=== PATIENT | female | born 1980 | race African-American/Black ===

== ENCOUNTER 2016-10-19 23:45 | Emergency (ER) | payer OTHER ==
[~2016-10-19] VITALS: Ht 152.4 cm; Wt 126.0 kg
[~2016-10-19 23:45] MED LIST: AMOXICILLIN500 MG OR; AMOXICILLIN500 MG PO; AUGMENTIN500 MG OR; CEPHALEXIN500 MG PO; CIPRO500 MG OR; ERY-TAB333 MG OR; KEFLEX500 MG OR; LORTAB 5 OR; LORTAB5 OR; MOTRIN600 MG OR; NAPROSYN500 MG OR; NAPROSYN500 MG PO; NO CURRENT MEDS; NORCO1 TA1 PO
[2016-10-20 00:58] LABS: HEMATOCRIT 32.4 % (37.0-47.0); HEMOGLOBIN 10.5 g/dl (12.0-16.0); IMMATURE GRANULOCYTES 0.3 % (0.0-1.0); MEAN CELL VOLUME 85.7 fL CALC (80.0-100.0); MEAN CORPUSCULAR HGB 27.8 pG CALC (26.0-32.0); MEAN CORPUSCULAR HGB CONC 32.4 g/L CALC (32.0-36.0); NEUT# 4.34 thou/uL (2.00-7.15); RED BLOOD COUNT 3.78 mill/uL (4.20-5.60); RED CELL DISTRI WIDTH 14.4 % (11.5-15.5)
[2016-10-20 01:02] LABS: URINE BILIRUBIN - DIPSTICK NEGATIVE (NEGATIVE); URINE BLOOD DIPSTICK SMALL (NEGATIVE); URINE CLARITY CLEAR; URINE COLOR YELLOW; URINE GLUCOSE - DIPSTICK NEGATIVE (NEGATIVE); URINE KETONE NEGATIVE (NEGATIVE); URINE LEUK ESTERASE NEGATIVE (NEGATIVE); URINE NITRITE - DIPSTICK NEGATIVE (Negative); URINE PH 5.5 (4.5-8.0); URINE PROTEIN - DIPSTICK NEGATIVE (NEG-TRACE); URINE UROBILINOGEN - DIPSTICK 0.2 E.U./dL (0.2)
[2016-10-20 01:11] LABS: INFLUENZA A NONE DETECTED (NONE DETECT); INFLUENZA B NONE DETECTED (NONE DETECT)
[2016-10-20 01:17] LABS: ALBUMIN 3.9 g/dL (3.2-5.0); ALKALINE PHOSPHATASE 90 u/l (38-126); ANION GAP 15 (6-22 (CALC)); BILIRUBIN, TOTAL 0.2 mg/dL (0.0-1.4); BUN 6 mg/dL (7-17); BUN/CREATININE RATIO 9 (12-20 (CALC)); CALCIUM 8.8 mg/dL (8.4-10.2); CARBON DIOXIDE 24 mmol/l (22-30); CHLORIDE 107 mmol/l (95-108); CREATININE 0.7 mg/dL (0.5-1.0); GFR > 60 ML/MIN (>=60 (CALC)); GFR FOR AFR.AMER. > 60 ML/MIN (>=60 (CALC)); GLUCOSE 102 mg/dL (65-105); POTASSIUM 3.3 mmol/l (3.5-5.1); SGOT/AST 28 u/l (14-36); SGPT/ALT 34 u/l (9-52); SODIUM 143 mmol/l (137-146); TOTAL PROTEIN 7.5 g/dL (6.3-8.2)
[2016-10-20 01:18] LABS: URINE RBC 0-2 RBC/hpf (0-5); URINE SQUAMOUS EPITHELIAL CELL FEW EPI/hpf (0-FEW); URINE WBC 0-2 WBC/hpf (0-5)
[2016-10-20 02:00] VITALS: BP 142/70
[2016-10-20] MEDS ORDERED: AMOXICILLIN500 MG PO (02:25)
== END 2016-10-20 02:31 | disposition home or self-care (01) | DRG 153 ==
LOC: ED 23:45
PROVIDERS: Emergency Medicine
DX: J06.9 Acute upper respiratory infection, unspecified (principal)

== ENCOUNTER 2017-09-06 21:17 | Emergency (ER) | payer OTHER ==
[~2017-09-06] VITALS: Ht 167.6 cm; Wt 124.4 kg
[2017-09-06 21:58] LABS: URINE BILIRUBIN - DIPSTICK NEGATIVE (NEGATIVE); URINE BLOOD DIPSTICK TRACE-INTACT (NEGATIVE); URINE COLOR YELLOW; URINE GLUCOSE - DIPSTICK NEGATIVE (NEGATIVE); URINE KETONE NEGATIVE (NEGATIVE); URINE LEUK ESTERASE NEGATIVE (NEGATIVE); URINE NITRITE - DIPSTICK NEGATIVE (Negative); URINE PROTEIN - DIPSTICK NEGATIVE (NEG-TRACE); URINE SPECIFIC GRAVITY 1.015
[2017-09-06 22:00] LABS: URINE CLARITY CLEAR
[2017-09-06 22:14] LABS: INFLUENZA A NONE DETECTED (NONE DETECT); INFLUENZA B NONE DETECTED (NONE DETECT)
[2017-09-06 22:26] LABS: HEMOGLOBIN 10.6 g/dl (12.0-16.0); IMMATURE GRANULOCYTES 0.2 % (0.0-1.0); MEAN CELL VOLUME 85.6 fL CALC (80.0-100.0); MEAN CORPUSCULAR HGB 26.7 pG CALC (26.0-32.0); MEAN CORPUSCULAR HGB CONC 31.2 g/L CALC (32.0-36.0); NEUT# 2.71 thou/uL (2.00-7.15); RED BLOOD COUNT 3.97 mill/uL (4.20-5.60); RED CELL DISTRI WIDTH 14.6 % (11.5-15.5)
[2017-09-06 22:55] LABS: ALBUMIN 3.6 g/dL (3.2-5.0); ALKALINE PHOSPHATASE 112 u/l (38-126); ANION GAP 16 (6-22 (CALC)); BILIRUBIN, TOTAL 0.3 mg/dL (0.0-1.4); BUN 8 mg/dL (7-17); BUN/CREATININE RATIO 12 (12-20 (CALC)); CARBON DIOXIDE 25 mmol/l (22-30); CHLORIDE 104 mmol/l (95-108); CREATININE 0.7 mg/dL (0.5-1.0); GFR > 60 ML/MIN (>=60 (CALC)); GFR FOR AFR.AMER. > 60 ML/MIN (>=60 (CALC)); POTASSIUM 3.4 mmol/l (3.5-5.1); SGOT/AST 26 u/l (14-36); SGPT/ALT 35 u/l (9-52); SODIUM 142 mmol/l (137-146); TOTAL PROTEIN 7.3 g/dL (6.3-8.2)
[2017-09-06] MEDS ORDERED: ONDANSETRON4 MG PO (23:02)
[2017-09-06] MEDS ORDERED: ATIVAN0.5 MG PO (23:02)
[2017-09-06 23:15] VITALS: BP 155/95
== END 2017-09-06 23:15 | disposition home or self-care (01) | DRG 880 ==
LOC: ED 21:17
PROVIDERS: Emergency Medicine
DX: F43.0 Acute stress reaction (principal); F41.1 Generalized anxiety disorder

== ENCOUNTER 2018-05-18 19:15 | Emergency (ER) | payer OTHER ==
[~2018-05-18] VITALS: Ht 167.6 cm; Wt 122.7 kg
[~2018-05-18 19:15] MED LIST changes: +ATIVAN0.5 MG PO; +ONDANSETRON4 MG PO
[2018-05-18 21:21] LABS: HEMATOCRIT 35.6 % (37.0-47.0); HEMOGLOBIN 11.2 g/dl (12.0-16.0); IMMATURE GRANULOCYTES 0.1 % (0.0-5.0); MEAN CELL VOLUME 84.4 fL CALC (80.0-100.0); MEAN CORPUSCULAR HGB 26.5 pG CALC (26.0-32.0); MEAN CORPUSCULAR HGB CONC 31.5 g/L CALC (32.0-36.0); NEUT# 3.26 thou/uL (2.00-7.15); RED BLOOD COUNT 4.22 mill/uL (4.20-5.60); RED CELL DISTRI WIDTH 15.5 % (11.5-15.5)
[2018-05-18] MEDS ORDERED: FLEXERIL5 M1 PO (21:43)
[2018-05-18] MEDS ORDERED: TORADOL PO (21:43)
[2018-05-18 21:55] VITALS: BP 148/87
== END 2018-05-18 21:55 | disposition home or self-care (01) | DRG 552 ==
LOC: ED 19:15
PROVIDERS: Family Medicine
DX: S16.1XXA Strain of muscle, fascia and tendon at neck level, initial encounter (principal); S29.012A Strain of muscle and tendon of back wall of thorax, initial encounter; J06.9 Acute upper respiratory infection, unspecified; X50.0XXA Overexertion from strenuous movement or load, initial encounter; Y93.89 Activity, other specified; Y99.0 Civilian activity done for income or pay

== ENCOUNTER 2018-11-05 10:00 | Emergency (ER) | payer OTHER ==
[~2018-11-05] VITALS: Ht 167.6 cm; Wt 125.0 kg
[~2018-11-05 10:00] MED LIST changes: +FLEXERIL5 M1 PO; +TORADOL PO
[2018-11-05] MEDS ORDERED: ZESTRIL10 M1 PO (10:12)
[2018-11-05 10:38] LABS: URINE BILIRUBIN - DIPSTICK NEGATIVE (NEGATIVE); URINE BLOOD DIPSTICK NEGATIVE (NEGATIVE); URINE COLOR YELLOW; URINE GLUCOSE - DIPSTICK NEGATIVE (NEGATIVE); URINE KETONE NEGATIVE (NEGATIVE); URINE LEUK ESTERASE NEGATIVE (NEGATIVE); URINE PROTEIN - DIPSTICK NEGATIVE (NEG-TRACE); URINE SPECIFIC GRAVITY 1.015; URINE UROBILINOGEN - DIPSTICK 0.2 E.U./dL (0.2)
[2018-11-05 10:45] LABS: URINE NITRITE - DIPSTICK POSITIVE (Negative)
[2018-11-05 10:50] LABS: URINE RBC 0-2 RBC/hpf (0-5); URINE SQUAMOUS EPITHELIAL CELL FEW EPI/hpf (0-FEW); URINE WBC 0-2 WBC/hpf (0-5)
[2018-11-05] MEDS ORDERED: TESSALON PERLE100 MG PO (11:55)
[2018-11-05] MEDS ORDERED: KEFLEX500 M1 PO (11:55)
[2018-11-05] MEDS ORDERED: VENTOLIN HFA IN (11:55)
[2018-11-05 12:16] VITALS: BP 171/103
[2018-11-06] MEDS ORDERED: ROBITUSSIN AC10 ML PO (23:00)
[2018-11-06] MEDS ORDERED: MEDDOSEPAK PO (23:01)
== END 2018-11-05 12:16 | disposition home or self-care (01) | DRG 153 ==
LOC: ED 10:00
PROVIDERS: Emergency Medicine
DX: J06.9 Acute upper respiratory infection, unspecified (principal); N39.0 Urinary tract infection, site not specified; I10 Essential (primary) hypertension

== ENCOUNTER 2018-11-06 21:19 | Emergency (ER) | payer OTHER ==
[~2018-11-06] VITALS: Ht 167.6 cm; Wt 123.4 kg
[~2018-11-06 21:19] MED LIST changes: +KEFLEX500 M1 PO; +TESSALON PERLE100 MG PO; +VENTOLIN HFA IN; +ZESTRIL10 M1 PO
--- NOTE | 2018-11-06 22:00 | NUR ---
BREATHING TREATMENT GIVEN WITH [employer]. BREATHING TECH. FOR GOOD DEPOSITION TO THE LUNGS.
[2018-11-06] MEDS ORDERED: ROBITUSSIN AC10 ML PO (23:00)
[2018-11-06] MEDS ORDERED: MEDDOSEPAK PO (23:01)
[2018-11-06 23:11] VITALS: BP 148/79
== END 2018-11-06 23:00 | disposition home or self-care (01) | DRG 153 ==
LOC: ED 21:19
DX: J06.9 Acute upper respiratory infection, unspecified (principal); I10 Essential (primary) hypertension

== ENCOUNTER 2019-10-31 10:40 | Emergency (ER) | payer BC ==
[~2019-10-31] VITALS: Ht 167.6 cm; Wt 124.4 kg
[~2019-10-31 10:40] MED LIST changes: +MEDDOSEPAK PO; +ROBITUSSIN AC10 ML PO
[2019-10-31] MEDS ORDERED: MOTRIN800 MG PO (12:22)
[2019-10-31 12:33] VITALS: BP 168/106
== END 2019-10-31 12:39 | disposition home or self-care (01) | DRG 563 ==
LOC: ED 10:40
DX: S83.91XA Sprain of unspecified site of right knee, initial encounter (principal); I10 Essential (primary) hypertension; E66.9 Obesity, unspecified; X58.XXXA Exposure to other specified factors, initial encounter; Z87.891 Personal history of nicotine dependence
CPT/HCPCS: L1830

== ENCOUNTER 2019-11-19 08:02 | Emergency (ER) | payer BC ==
[~2019-11-19] VITALS: Ht 165.1 cm; Wt 120.0 kg
[~2019-11-19 08:02] MED LIST changes: +MOTRIN800 MG PO
[2019-11-19 08:58] LABS: HEMATOCRIT 36.7 % (37.0-47.0); HEMOGLOBIN 11.1 g/dl (12.0-16.0); IMMATURE GRANULOCYTES 0.4 % (0.0-5.0); MEAN CELL VOLUME 86.6 fL CALC (80.0-100.0); MEAN CORPUSCULAR HGB 26.2 pG CALC (26.0-32.0); MEAN CORPUSCULAR HGB CONC 30.2 g/dL CAL (32.0-36.0); NEUT# 2.73 thou/uL (2.00-7.15); RED BLOOD COUNT 4.24 mill/uL (4.20-5.60); RED CELL DISTRI WIDTH 14.4 % (11.5-15.5)
[2019-11-19 09:13] LABS: ALBUMIN 3.7 g/dL (3.2-5.0); ALKALINE PHOSPHATASE 93 u/l (38-126); ANION GAP 7 (6-22 (CALC)); BILIRUBIN, TOTAL 0.4 mg/dL (0.0-1.4); BUN 12 mg/dL (7-17); BUN/CREATININE RATIO 18 (12-20 (CALC)); CARBON DIOXIDE 28 mmol/l (22-30); CHLORIDE 108 mmol/l (95-108); CREATININE 0.7 mg/dL (0.5-1.0); GFR > 60 ML/MIN (>=60 (CALC)); GFR FOR AFR.AMER. > 60 ML/MIN (>=60 (CALC)); SGOT/AST 26 u/l (14-36); SODIUM 139 mmol/l (137-146); TOTAL PROTEIN 7.3 g/dL (6.3-8.2)
[2019-11-19 09:41] LABS: URINE BILIRUBIN - DIPSTICK NEGATIVE (NEGATIVE); URINE BLOOD DIPSTICK LARGE (NEGATIVE); URINE COLOR YELLOW; URINE GLUCOSE - DIPSTICK NEGATIVE (NEGATIVE); URINE KETONE TRACE mg/dL (NEGATIVE); URINE LEUK ESTERASE NEGATIVE (NEGATIVE); URINE NITRITE - DIPSTICK NEGATIVE (Negative); URINE PH 5.5 (4.5-8.0); URINE PROTEIN - DIPSTICK NEGATIVE (NEG-TRACE); URINE SPECIFIC GRAVITY 1.025
[2019-11-19 09:43] LABS: URINE RBC TNTC RBC/hpf (0-5); URINE SQUAMOUS EPITHELIAL CELL FEW EPI/hpf (0-FEW)
[2019-11-19] MEDS ORDERED: FLONASE AL50 MCG/ACT (10:21)
[2019-11-19] MEDS ORDERED: NAPROXEN500 MG PO (10:21)
[2019-11-19] MEDS ORDERED: FLEXERIL PO (10:21)
[2019-11-19 10:50] VITALS: BP 147/72
== END 2019-11-19 10:47 | disposition home or self-care (01) | DRG 74 ==
LOC: ED 08:02
PROVIDERS: Emergency Medicine
DX: M54.12 Radiculopathy, cervical region (principal); S13.4XXA Sprain of ligaments of cervical spine, initial encounter; J32.4 Chronic pansinusitis; I10 Essential (primary) hypertension; X58.XXXA Exposure to other specified factors, initial encounter

== ENCOUNTER 2019-11-20 09:53 | Emergency (ER) | payer BC ==
[~2019-11-20] VITALS: Ht 165.1 cm; Wt 130.0 kg
[~2019-11-20 09:53] MED LIST changes: +FLEXERIL PO; +FLONASE AL50 MCG/ACT; +NAPROXEN500 MG PO
[2019-11-20 10:42] VITALS: BP 175/90
== END 2019-11-20 10:45 | disposition home or self-care (01) | DRG 74 ==
LOC: ED 09:53
DX: M54.12 Radiculopathy, cervical region (principal); I10 Essential (primary) hypertension

== ENCOUNTER 2020-02-18 09:57 | Emergency (ER) | payer BC ==
[~2020-02-18] VITALS: Ht 165.1 cm; Wt 124.5 kg
[2020-02-18 10:36] VITALS: BP 166/92
== END 2020-02-18 11:01 | disposition home or self-care (01) | DRG 552 ==
LOC: ED 09:57
DX: M54.5 Low back pain (principal); E66.3 Overweight; I10 Essential (primary) hypertension

== ENCOUNTER 2020-05-18 08:07 | Emergency (ER) | payer BC ==
[~2020-05-18] VITALS: Ht 165.1 cm; Wt 122.0 kg
[2020-05-18] MEDS ORDERED: LOVASTATIN10 M1 PO (08:32)
[2020-05-18 09:03] LABS: HEMATOCRIT 34.5 % (37.0-47.0); HEMOGLOBIN 10.4 g/dl (12.0-16.0); IMMATURE GRANULOCYTES 0.2 % (0.0-5.0); MEAN CELL VOLUME 83.5 fL CALC (80.0-100.0); MEAN CORPUSCULAR HGB 25.2 pG CALC (26.0-32.0); MEAN CORPUSCULAR HGB CONC 30.1 g/dL CAL (32.0-36.0); NEUT# 3.65 thou/uL (2.00-7.15); RED BLOOD COUNT 4.13 mill/uL (4.20-5.60); RED CELL DISTRI WIDTH 15.9 % (11.5-15.5)
[2020-05-18 09:11] LABS: URINE BILIRUBIN - DIPSTICK NEGATIVE (NEGATIVE); URINE BLOOD DIPSTICK NEGATIVE (NEGATIVE); URINE COLOR YELLOW; URINE GLUCOSE - DIPSTICK NEGATIVE (NEGATIVE); URINE KETONE NEGATIVE (NEGATIVE); URINE LEUK ESTERASE NEGATIVE (NEGATIVE); URINE NITRITE - DIPSTICK NEGATIVE (Negative); URINE PROTEIN - DIPSTICK NEGATIVE (NEG-TRACE); URINE UROBILINOGEN - DIPSTICK 0.2 E.U./dL (0.2)
[2020-05-18 09:18] LABS: ALBUMIN 4.4 g/dL (3.2-5.0); ALKALINE PHOSPHATASE 110 u/l (38-126); ANION GAP 14 (6-22 (CALC)); BILIRUBIN, TOTAL 0.3 mg/dL (0.0-1.4); BUN 7 mg/dL (7-17); BUN/CREATININE RATIO 9 (12-20 (CALC)); CARBON DIOXIDE 28 mmol/l (22-30); CHLORIDE 103 mmol/l (95-108); CREATININE 0.8 mg/dL (0.5-1.0); GFR > 60 ML/MIN (>=60 (CALC)); GFR FOR AFR.AMER. > 60 ML/MIN (>=60 (CALC)); POTASSIUM 3.7 mmol/l (3.5-5.1); SGOT/AST 30 u/l (14-36); SODIUM 141 mmol/l (137-146); TOTAL PROTEIN 8.5 g/dL (6.3-8.2)
[2020-05-18 09:31] LABS: MYOGLOBIN 93 ng/mL (0 - 62)
[2020-05-18] MEDS ORDERED: KEFLEX500 M1 PO (09:45)
[2020-05-18] MEDS ORDERED: ROBITUSSIN AC10 ML PO (09:45)
[2020-05-18 10:30] VITALS: BP 178/86
== END 2020-05-18 10:30 | disposition home or self-care (01) | DRG 153 ==
LOC: ED 08:07
PROVIDERS: Emergency Medicine
DX: J06.9 Acute upper respiratory infection, unspecified (principal); I10 Essential (primary) hypertension; Z20.822 Contact with and (suspected) exposure to COVID-19

== ENCOUNTER 2020-12-20 10:18 | Emergency (ER) | payer SELFPAY ==
[~2020-12-20] VITALS: Ht 165.1 cm; Wt 125.0 kg
[~2020-12-20 10:18] MED LIST changes: +LOVASTATIN10 M1 PO
[2020-12-20] MEDS ORDERED: LISINOPRIL10 MG PO (10:40)
[2020-12-20] MEDS ORDERED: OMEPRAZOLE20 MG PO (10:40)
[2020-12-20] MEDS ORDERED: NORVASC5 M1 PO (10:41)
[2020-12-20 11:59] LABS: HEMATOCRIT 34.2 % (37.0-47.0); HEMOGLOBIN 10.5 g/dl (12.0-16.0); IMMATURE GRANULOCYTES 0.1 % (0.0-5.0); MEAN CELL VOLUME 84.7 fL CALC (80.0-100.0); MEAN CORPUSCULAR HGB CONC 30.7 g/dL CAL (32.0-36.0); NEUT# 7.82 thou/uL (2.00-7.15); RED BLOOD COUNT 4.04 mill/uL (4.20-5.60); RED CELL DISTRI WIDTH 14.9 % (11.5-15.5)
[2020-12-20 11:59] LABS: URINE BILIRUBIN - DIPSTICK NEGATIVE (NEGATIVE); URINE BLOOD DIPSTICK LARGE (NEGATIVE); URINE COLOR YELLOW; URINE GLUCOSE - DIPSTICK NEGATIVE (NEGATIVE); URINE KETONE NEGATIVE (NEGATIVE); URINE LEUK ESTERASE TRACE (NEGATIVE); URINE PROTEIN - DIPSTICK TRACE mg/dL (NEG-TRACE); URINE SPECIFIC GRAVITY 1.025; URINE UROBILINOGEN - DIPSTICK 0.2 E.U./dL (0.2)
[2020-12-20 12:00] LABS: URINE NITRITE - DIPSTICK NEGATIVE (Negative); URINE RBC 25-50 RBC/hpf (0-5); URINE WBC 0-2 WBC/hpf (0-5)
[2020-12-20 12:01] LABS: URINE EPITHELIAL CELLS FEW EPI/hpf (0-FEW)
[2020-12-20 12:05] LABS: ALKALINE PHOSPHATASE 90 u/l (38-126); ANION GAP 12 (6-22 (CALC)); BILIRUBIN, TOTAL 0.2 mg/dL (0.0-1.4); BUN 6 mg/dL (7-17); BUN/CREATININE RATIO 8 (12-20 (CALC)); CARBON DIOXIDE 26 mmol/l (22-30); CHLORIDE 104 mmol/l (95-108); CREATININE 0.7 mg/dL (0.5-1.0); GFR > 60 ML/MIN (>=60 (CALC)); GFR FOR AFR.AMER. > 60 ML/MIN (>=60 (CALC)); LIPASE 23 u/l (23-300); POTASSIUM 3.6 mmol/l (3.5-5.1); SGOT/AST 22 u/l (14-36); SODIUM 138 mmol/l (137-146); TOTAL PROTEIN 7.5 g/dL (6.3-8.2)
[2020-12-20] MEDS ORDERED: ZOFRAN4 M1 PO (13:52)
[2020-12-20 14:04] VITALS: BP 149/70
== END 2020-12-20 14:32 | disposition home or self-care (01) | DRG 392 ==
LOC: ED 10:18
PROVIDERS: Family Medicine
DX: K52.9 Noninfective gastroenteritis and colitis, unspecified (principal); I10 Essential (primary) hypertension; K21.9 Gastro-esophageal reflux disease without esophagitis; Z20.822 Contact with and (suspected) exposure to COVID-19

== ENCOUNTER 2021-09-09 19:21 | Emergency (ER) | payer SELFPAY ==
[~2021-09-09] VITALS: Ht 165.1 cm; Wt 100.0 kg
[~2021-09-09 19:21] MED LIST changes: +LISINOPRIL10 MG PO; +NORVASC5 M1 PO; +OMEPRAZOLE20 MG PO; +ZOFRAN4 M1 PO
[2021-09-09] MEDS ORDERED: TAM75CAP PO (19:58)
== END 2021-09-09 20:30 | disposition home or self-care (01) | DRG 195 ==
LOC: ED 19:21
DX: J10.1 Influenza due to other identified influenza virus with other respiratory manifestations (principal); I10 Essential (primary) hypertension; K21.9 Gastro-esophageal reflux disease without esophagitis; Z20.822 Contact with and (suspected) exposure to COVID-19

== ENCOUNTER 2022-06-07 11:15 | Emergency (ER) | payer OTHER ==
[2022-06-07] VITALS (19 sets, daily range): BP systolic 68–193; BP diastolic 40–134
[~2022-06-07] VITALS: Ht 165.1 cm; Wt 130.0 kg
[~2022-06-07 11:15] MED LIST changes: +TAM75CAP PO
[2022-06-07 13:16] LABS: URINE BILIRUBIN - DIPSTICK NEGATIVE (NEGATIVE); URINE BLOOD DIPSTICK SMALL (NEGATIVE); URINE COLOR YELLOW; URINE GLUCOSE - DIPSTICK NEGATIVE (NEGATIVE); URINE KETONE TRACE mg/dL (NEGATIVE); URINE LEUK ESTERASE NEGATIVE (NEGATIVE); URINE PH 5.5 (4.5-8.0); URINE PROTEIN - DIPSTICK NEGATIVE (NEG-TRACE); URINE SPECIFIC GRAVITY >=1.030; URINE UROBILINOGEN - DIPSTICK 0.2 E.U./dL (0.2)
[2022-06-07 13:18] LABS: URINE NITRITE - DIPSTICK NEGATIVE (Negative)
[2022-06-07 13:22] LABS: URINE RBC 0-2 RBC/hpf (0-5); URINE SQUAMOUS EPITHELIAL CELL MODERATE EPI/hpf (0-FEW); URINE WBC 0-2 WBC/hpf (0-5)
[2022-06-07 13:23] LABS: URINE MUCUS FEW hpf (NONE-FEW)
[2022-06-07 14:49] LABS: BASO% 0.2 % (0-3); EOS% 3.3 % (0-8); HEMATOCRIT 36.4 % (37.0-47.0); HEMOGLOBIN 11.4 g/dl (12.0-16.0); IMMATURE GRANULOCYTES 0.2 % (0.0-5.0); LYMPH% 22.6 % (15-41); MEAN CORPUSCULAR HGB 28.2 pG CALC (26.0-32.0); MEAN CORPUSCULAR HGB CONC 31.3 g/dL CAL (32.0-36.0); MONO% 10.2 % (2-13); NEUT# 3.91 thou/uL (2.00-7.15); NEUT% 63.5 % (42-76); RED BLOOD COUNT 4.04 mill/uL (4.20-5.60); RED CELL DISTRI WIDTH 14.2 % (11.5-15.5)
[2022-06-07 14:50] LABS: MEAN CELL VOLUME 90.1 fL CALC (80.0-100.0)
[2022-06-07 15:02] LABS: ALBUMIN 3.9 g/dL (3.2-5.0); ALKALINE PHOSPHATASE 93 u/l (38-126); ANION GAP 11 (6-22 (CALC)); BUN 9 mg/dL (7-17); BUN/CREATININE RATIO 12 (12-20 (CALC)); CARBON DIOXIDE 27 mmol/l (22-30); CHLORIDE 107 mmol/l (95-108); CREATININE 0.8 mg/dL (0.5-1.0); GFR FOR AFR.AMER. > 60 ML/MIN (>=60 (CALC)); GFR OTHER RACES > 60 ML/MIN (>=60 (CALC)); SGOT/AST 25 u/l (14-36); SODIUM 141 mmol/l (137-146)
[2022-06-07] MEDS ORDERED: MEDDOSEPAK PO (18:06)
[2022-06-07] MEDS ORDERED: NAPROXEN500 MG PO (18:06)
[2022-06-07] MEDS ORDERED: METHOCARBAMOL500 MG PO (18:06)
== END 2022-06-07 18:30 | disposition home or self-care (01) | DRG 552 ==
LOC: ED 11:15
PROVIDERS: Nurse Practitioner
DX: S16.1XXA Strain of muscle, fascia and tendon at neck level, initial encounter (principal); M54.16 Radiculopathy, lumbar region; I10 Essential (primary) hypertension; K21.9 Gastro-esophageal reflux disease without esophagitis; V49.40XA Driver injured in collision with unspecified motor vehicles in traffic accident, initial encounter
CPT/HCPCS: Q9967

== ENCOUNTER 2023-10-20 19:51 | Emergency (ER) | payer OTHER ==
[~2023-10-20] VITALS: Ht 165.1 cm; Wt 125.0 kg
[~2023-10-20 19:51] MED LIST changes: +METHOCARBAMOL500 MG PO
[2023-10-20] MEDS ORDERED: IBUPROFEN 800 MG/TAB PO ONE (22:50)
[2023-10-20 23:25] LABS: URINE BILIRUBIN - DIPSTICK Negative (NEGATIVE); URINE BLOOD DIPSTICK Large (NEGATIVE); URINE COLOR Yellow; URINE GLUCOSE - DIPSTICK Negative (NEGATIVE); URINE KETONE Negative (NEGATIVE); URINE LEUK ESTERASE Large (NEGATIVE); URINE NITRITE - DIPSTICK Negative (Negative); URINE PROTEIN - DIPSTICK 30 mg/dL (NEG-TRACE); URINE UROBILINOGEN - DIPSTICK 0.2 E.U./dL (0.2)
[2023-10-20 23:28] LABS: URINE RBC 25-50 RBC/hpf (0-5); URINE SQUAMOUS EPITHELIAL CELL FEW EPI/hpf (0-FEW); URINE WBC 50-100 WBC/hpf (0-5)
[2023-10-20 23:29] LABS: URINE BACTERIA MODERATE hpf
[2023-10-20 23:34] LABS: BASO% 0.2 % (0-3); EOS% 1.5 % (0-8); HEMATOCRIT 33.1 % (37.0-47.0); HEMOGLOBIN 10.1 g/dl (12.0-16.0); IMMATURE GRANULOCYTES 0.2 % (0.0-5.0); LYMPH% 24.4 % (15-41); MEAN CORPUSCULAR HGB 24.4 pG CALC (26.0-32.0); MEAN CORPUSCULAR HGB CONC 30.5 g/dL CAL (32.0-36.0); MONO% 8.9 % (2-13); NEUT# 6.01 thou/uL (2.00-7.15); NEUT% 64.8 % (42-76); RED BLOOD COUNT 4.14 mill/uL (4.20-5.60); RED CELL DISTRI WIDTH 16.1 % (11.5-15.5)
[2023-10-21] MEDS ORDERED: CIPROFLOXACIN250 MG PO (00:02)
[2023-10-21 00:33] VITALS: BP 157/93
[2023-10-21] MEDS ORDERED: CIPROFLOXACIN HCL 500 MG/TAB PO ONE (23:55)
== END 2023-10-21 00:35 | disposition home or self-care (01) | DRG 690 ==
LOC: ED 19:51
PROVIDERS: Family Medicine
DX: N39.0 Urinary tract infection, site not specified (principal); B96.20 Unspecified Escherichia coli [E. coli] as the cause of diseases classified elsewhere; I10 Essential (primary) hypertension; K21.9 Gastro-esophageal reflux disease without esophagitis; Z20.822 Contact with and (suspected) exposure to COVID-19

== ENCOUNTER 2024-07-27 00:45 | Emergency (ER) | payer OTHER ==
[~2024-07-27] VITALS: Ht 165.1 cm; Wt 119.0 kg
[~2024-07-27 00:45] MED LIST changes: +CIPROFLOXACIN250 MG PO
[2024-07-27] MEDS ORDERED: KETOROLAC TROMETHAMINE 30 MG/ML SDV IM ONE (01:05)
[2024-07-27] MEDS ORDERED: HYDROmorphone HCL 2 MG/AMP IM ONE (01:05)
[2024-07-27] MEDS ORDERED: CYCLOBENZAPRINE HCL 5 MG TAB PO ONE (01:05)
[2024-07-27 01:37] LABS: URINE BILIRUBIN - DIPSTICK Negative (NEGATIVE); URINE BLOOD DIPSTICK Negative (NEGATIVE); URINE GLUCOSE - DIPSTICK Negative (NEGATIVE); URINE KETONE Trace mg/dL (NEGATIVE); URINE LEUK ESTERASE Negative (NEGATIVE); URINE NITRITE - DIPSTICK Negative (Negative); URINE PH 5.5 (4.5-8.0); URINE PROTEIN - DIPSTICK Negative (NEG-TRACE); URINE SPECIFIC GRAVITY 1.025; URINE UROBILINOGEN - DIPSTICK 0.2 E.U./dL (0.2)
[2024-07-27 01:38] LABS: URINE COLOR Yellow
[2024-07-27] MEDS ORDERED: ONDANSETRON 4 MG/TAB ODT PO ONE (02:45)
[2024-07-27] MEDS ORDERED: VOLTAREN - GENE75 MG PO (02:52)
[2024-07-27] MEDS ORDERED: TRAMADOL HYDROC50 M1 PO (02:52)
[2024-07-27 03:02] VITALS: BP 122/72
== END 2024-07-27 03:03 | disposition home or self-care (01) | DRG 563 ==
LOC: ED 00:45
PROVIDERS: Family Medicine
DX: S39.012A Strain of muscle, fascia and tendon of lower back, initial encounter (principal); I10 Essential (primary) hypertension; X50.0XXA Overexertion from strenuous movement or load, initial encounter
CPT/HCPCS: J1171